=== PATIENT | male | born 1960 | race Caucasian/White ===

== ENCOUNTER 2023-02-18 12:55 | Outpatient (CLI) | payer OTHER, SELFPAY | END 2023-02-18 12:56 | disposition home or self-care (01) | PROVIDERS: PCP Family Medicine; Visit Provider Family Medicine | DX: Z00.00 Encounter for general adult medical examination without abnormal findings (principal); R07.89 Other chest pain; I10 Essential (primary) hypertension | CPT/HCPCS: 85379 ==

== ENCOUNTER 2023-03-03 14:26 | Outpatient (CLI) | payer OTHER, SELFPAY ==
[2023-03-03 15:43] VITALS: BP 151/90; PULSE 91
--- NOTE | 2023-03-03 16:26 | W.PM.STED ---
Stress Test Note Date Date of test: 03/03/23 Providers Primary care provider: Kwesi Sullivan Stress test physician: Glen Morin Stress Test Note Stress test ordered: Stress Echo Indication for test: Chest pain Results discussion: Patient is a very nice 8-year-old gentleman who presents for the above test, indication was chest pain after discussion the risks benefits and side effects and review of the cardiac stress test medical history form he would like to proceed. Pretest EKG shows normal sinus rhythm, incomplete right bundle branch block configuration is noted. There is some mild ST wave flattening noted through the precordial leads, ventricular rate is 66 blood pressure 160 and 93, following Philip protocol patient is exercised for a total time of 12 minutes, metabolic equivalent achieved is 12.1, maximum heart rate was 167 which is 122% of the maximum, test is terminated because of fulfillment of protocol he did have some ST wave depression noted inferiorly of 2 mm, use and 1.5 mm depression noted through leads V3 through V6. He was asymptomatic, with this. The exercised for a very high level, conditioning was felt to be excellent, Impression: Positive electrographic form of stress test, in a gentleman with no symptoms Follow up suggested: Await echo images clinical correlation with these will be needed, he exercised to a very high workload, is conditioning was felt to be excellent, this may be a false positive, left this testing facility in excellent condition.
== END 2023-03-03 14:27 | disposition home or self-care (01) ==
LOC: STRESS 14:26
PROVIDERS: PCP Family Medicine; Visit Provider Family Medicine
DX: R07.89 Other chest pain (principal); I34.0 Nonrheumatic mitral (valve) insufficiency
CPT/HCPCS: 93016; 93325; 93351

== ENCOUNTER 2023-05-06 07:30 | Outpatient (RCR) | payer OTHER, SELFPAY | END 2023-06-02 10:00 | disposition home or self-care (01) | PROVIDERS: PCP Family Medicine; Visit Provider Orthopaedic Surgery Sports Medicine | DX: M17.0 Bilateral primary osteoarthritis of knee (principal); M25.561 Pain in right knee; M25.562 Pain in left knee; Z51.89 Encounter for other specified aftercare | CPT/HCPCS: 97110; 97140; 97161 ==

== ENCOUNTER 2023-05-08 08:30 | Outpatient (CLI) | payer OTHER, SELFPAY ==
--- OUTSIDE RECORDS SUMMARY | 2023-05-09 07:52 | XMS_ITS | Continuity of Care Document ---
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 Name Role Phone Yamilka Ashby MD Unavailable Unavailable Medications Medication Instructions Dosage Effective Dates (start - stop) Status Comments omeprazole 20 mg Cap, Delayed Release Take one tablet by mouth daily - Active omeprazole 20 mg Cap, Delayed Release Take 1 tablet by mouth daily - Active Procedures Procedure Date Ugi Endo; W/insrt Guide Wire Ugi Endo; W/bx 1/mx Level Iv-surg Path Gross/micro 09 Advance Directives Directive Yes / No Effective Date File Name No Information Encounters Encounter Description Practice Location Reason(s) For Visit Diagnoses Date Provider Providers Copied on Encounter [facility], [address] [address], [place], [place], [id number], tel:[phone] [facility] No Information 0 Isma Prather. [address] [place] [address], [id number] , [place]. [phone] [facility] [place], [address] [address], [place], [place], [id number], [place] [phone] [facility] Esoph Stricture/schat zki RingGastritis W/o BleedStomach Function Dis NosGastritis W/o BleedEsoph Stricture/schat zki Ring 1200 9 Gael Moreno. [address] [facility] [address], [place], [id number] , [place]. [phone] Family History Family Member Type Diagnosis Age At Onset No Information Payers Payer name Insurance type Covered constitution party ID Authoriza tion(s) No Information Social History Type Description Quantity Date Captured Comments Sex Male Smoking Status No Information Chief Complaint And Reason For Visit No Information Reason For Referral Reason For Referral No Information Plan Of Treatment Date Type Action Status No Information History Of Present Illness Encounter Date Complaint History Of Prese nt Illness No Information Functional Status Date Functional Assessmen t No Information Instructions Date Instruction Additional Infor mation No Information Assessments Type Assessment Date No Information Patient Care Teams Name Effective Dates (start - stop) Status Members No Information
== END 2023-05-08 08:31 | disposition home or self-care (01) ==
PROVIDERS: PCP Family Medicine; Referring Provider Family Medicine; Visit Provider Family Medicine
DX: Z00.00 Encounter for general adult medical examination without abnormal findings (principal); I10 Essential (primary) hypertension; E78.00 Pure hypercholesterolemia, unspecified; R97.20 Elevated prostate specific antigen [PSA]
CPT/HCPCS: 80048; 80061; 84153

== ENCOUNTER 2023-11-02 09:55 | Outpatient (CLI) | payer OTHER, SELFPAY ==
--- NOTE | 2023-11-02 11:19 | W.ANESCHARGE ---
Anesthesia Charges Start Date/Time Anesthesia Start Date: 11/02/23 Anesthesia Start Time: 10:40 Stop Date/Time Anesthesia Stop Date: 11/02/23 Anesthesia Stop Time: 11:15
--- NOTE | 2023-11-02 11:48 | W.ANESCHARGE ---
Anesthesia Charges Start Date/Time Anesthesia Start Date: 11/02/23 Anesthesia Start Time: 10:40 Stop Date/Time Anesthesia Stop Date: 11/02/23 Anesthesia Stop Time: 11:15
== END 2023-11-02 09:56 | disposition home or self-care (01) ==
LOC: OP CLINIC 09:55
PROVIDERS: PCP Family Medicine; Visit Provider Internal Medicine
DX: K57.30 Diverticulosis of large intestine without perforation or abscess without bleeding (principal); K22.70 Barrett's esophagus without dysplasia
CPT/HCPCS: 00813; 43239; 45378; 88305; J2704; J3490

== ENCOUNTER 2023-11-04 07:30 | Outpatient (CLI) | payer OTHER, SELFPAY | END 2023-11-04 07:31 | disposition home or self-care (01) | LOC: NFLDREF 11-06 13:57 | PROVIDERS: PCP Family Medicine; Referring Provider Family Medicine; Visit Provider Family Medicine | DX: E78.00 Pure hypercholesterolemia, unspecified (principal); R97.20 Elevated prostate specific antigen [PSA] | CPT/HCPCS: 80061; 84153 ==

== ENCOUNTER 2024-10-25 07:33 | Outpatient (CLI) | payer BC, SELFPAY | END 2024-10-25 07:34 | disposition home or self-care (01) | LOC: NFLDREF 10-26 09:20 | PROVIDERS: PCP Family Medicine; Referring Provider Family Medicine; Visit Provider Family Medicine | DX: I10 Essential (primary) hypertension (principal); Z13.1 Encounter for screening for diabetes mellitus; Z12.5 Encounter for screening for malignant neoplasm of prostate; Z13.6 Encounter for screening for cardiovascular disorders | CPT/HCPCS: 80048; 80061; G0103 ==

== ENCOUNTER 2025-09-04 07:26 | Outpatient (CLI) | payer BC, SELFPAY | END 2025-09-04 07:27 | disposition home or self-care (01) | LOC: NFLDREF 09-06 09:06 | PROVIDERS: PCP Family Medicine; Referring Provider Family Medicine; Visit Provider Family Medicine | DX: I10 Essential (primary) hypertension (principal); E78.00 Pure hypercholesterolemia, unspecified; Z12.5 Encounter for screening for malignant neoplasm of prostate | CPT/HCPCS: 80053; 80061; G0103 ==